=== PATIENT | male | born 1965 | race Caucasian/White ===

== ENCOUNTER → 2022-01-17 | Outpatient (CLI) | payer BC ==
[~2022-01-17] MED LIST: OMNICEF 300 MG300 MG PO
== END ==
LOC: EXRD 13:47
DX: R10.12 Left upper quadrant pain (principal); N28.1 Cyst of kidney, acquired
CPT/HCPCS: 76775

== ENCOUNTER → 2022-02-10 | Outpatient (CLI) | payer BC | LOC: MRI 09:32 | DX: N28.1 Cyst of kidney, acquired (principal) | CPT/HCPCS: 36415; 74183; 82565; 84520; A9577 ==